=== PATIENT | female | born 1945 | race Caucasian/White ===

== ENCOUNTER → 2017-02-15 | Outpatient (CLI) | payer OTHER ==
[~2017-02-15] MED LIST: AMBIEN 5 MG TABL5 M1 PO; ANTI-GAS180 MG PO; APAP650 PO; ARTIFICIAL TEA1 EACH OP; ASPIR 8181 M1 PO; BUTALB-ACETAMI1 EACH PO; BUTALB-APAP-CA1 EACH PO; CALCIUM 600 +1 EAC1 PO; CHLOR-TRIMETON PO; CLOBETASOL EMOL15 GM TOP; COLACE1 EAC1 RC; DIAZEPAM 2MG TAB2 MG PO; DILAUDID 11 MG/1 ML INTRATHECA; DILAUDID1 MG/1 ML IMPLANT; DOXYCYCLINE 10100 MG PO; EFFEXOR 5050 MG/1 T1 PO; EFFEXOR XR150 MG PO; EFFEXOR XR75 MG PO; ERYTHROMYCIN E3.5 G1 OPHTHALMIC; GABAPENTIN 100100 MG PO; GABAPENTIN600 M1 PO; GAS-X62.5 MG PO; HORIZANT600 MG PO; HYDROCODONE-AP1 EAC6 PO; KLOR-CON 1010 MEQ PO; LEVALBUTER1.25 MG/0.; LEVOTHYROXIN0.125 M1 PO; LEVOTHYROXIN0.137 M1 PO; LINZESS145 MCG PO; LOPERAMIDE 2 MG2 M1 PO; MAGOX 400400 MG PO; MIDAMOR 5MG TABL5 M1 PO; MS CONTIN15 MG PO; MULTIVITAMINS PO; NEURONTIN 300300 M1 PO; NEURONTIN600 MG PO; PAIN PUMP; PEPCID20 MG PO; PREDNISONE 10 M10 MG PO; PREDNISONE 20 M20 MG PO; PROAIR HFA8.5 GM INH; PROLOPRIM100 MG PO; PROMS25 WY RECTAL; PROTONIX40 M1 PO; SINGULAIR 10 MG10 M1; SPIRIVA INH; SPIRIVA18 MCG INH; STOOL SOFT-STI1 EACH PO; SYMBICORT160 MCG/4. INH; TIGAN300 MG PO; TIZANIDINE HCL2 M1 PO; TRAZODONE HCL100 MG PO; TUMS PO; TUSSIN PO; TYLENOL325 MG PO; VALIUM5 MG PO; VENTOLIN HFA 1818 GM INH; VITAMIN D2000 UNIT PO; VITAMIN E400 UNIT PO; VOLTAREN GEL 1100 G1 TOP; WOMEN'S LAXATIVE5 M1 PO; ZANAFLEX4 MG PO; ZINC30 M1 PO; ZOFRAN ODT4 MG PO
== END ==
LOC: RAD 16:30
DX: R06.02 Shortness of breath (principal); R06.00 Dyspnea, unspecified

== ENCOUNTER → 2017-06-02 | Outpatient (CLI) | payer OTHER | LOC: RAD 15:50 | DX: J44.9 Chronic obstructive pulmonary disease, unspecified (principal); G47.34 Idiopathic sleep related nonobstructive alveolar hypoventilation ==

== ENCOUNTER → 2018-03-01 | Outpatient (CLI) | payer OTHER ==
[~2018-03-01] MED LIST changes: +FLOMAX0.4 MG PO; +HYDROCODON-ACE1 EAC8 PO; +LEVOXYL137 MCG PO
--- NOTE | ~2018-03-01 | EKG ---
[address] [address] ELECTROCARDIOGRAM REPORT Name: REJI MEDINA [id number] Admission: 03/01/18 Attend Phys: Teetee Aj MD Discharge: Date of : 45 Report #: [id number] THIS REPORT FOR: //name// [facility] Test Date: 2018-03-01 Test Time: 08:56:42 Pat Name: REJI MEDINA Department: Room: Gender: F Pan Washer: JEFFERY : 1945 Requested By: Teetee Aj Order Number: [id number] MD: Hossein So Measurements Intervals [place] Rate: 71 P: 40 WI: 123 QRS: 31 QRSD: 86 T: 17 QT: 406 QTc: 442 Interpretive Statements Sinus rhythm Abnormal R-wave progression, early transition Baseline wander in lead(s) I,III,aVL Compared to ECG 01/06/2017 16:35:39 No significant changes Electronically Signed On 03-01-2018 16:45:47 CDT by Hossein So [email or web address] <ELECTRONICALLY SIGNED> By: Hossein So MD, [facility] 03/01/18 [id number] Hossein So MD, [facility] /EPI
== END | disposition home or self-care (01) ==
LOC: LITH 08:16
DX: N20.1 Calculus of ureter (principal); E78.00 Pure hypercholesterolemia, unspecified; G43.909 Migraine, unspecified, not intractable, without status migrainosus; M10.9 Gout, unspecified; M79.7 Fibromyalgia; Z79.899 Other long term (current) drug therapy; Z98.890 Other specified postprocedural states